=== PATIENT | male | born 1955 | race Caucasian/White ===

== ENCOUNTER 2025-03-17 23:06 | Emergency (ER) | payer SELFPAY ==
[~2025-03-17] VITALS: Ht 162.6 cm; Wt 91.0 kg
[2025-03-17 23:19] VITALS: TEMP 98.3; O2SAT 96
[2025-03-18 01:33] VITALS: BP 134/71; PULSE 78; RESP 18; O2SAT 98
== END 2025-03-18 01:35 | disposition home or self-care (01) ==
LOC: ER 23:06
DX: F10.129 Alcohol abuse with intoxication, unspecified (principal); E11.9 Type 2 diabetes mellitus without complications; I10 Essential (primary) hypertension; Z88.5 Allergy status to narcotic agent; Y90.9 Presence of alcohol in blood, level not specified
CPT/HCPCS: 99283